=== PATIENT | female | born 1985 | race Caucasian/White ===

== ENCOUNTER 2018-01-10 05:07 | Emergency (ER) | payer SELFPAY ==
[2018-01-10 05:20] VITALS: BP 114/67
[2018-01-10] MEDS: PROPARACAINE 0.5% OPHTH DROPS 15 ML EACHEYE STA (05:21)
--- NOTE | 2018-01-10 05:37 | ED Physician Documentation ---
PD HPI OPHTHO - Stated complaint Stated Complaint: RT EYE PAIN - Chief complaint Chief Complaint: Heent - History obtained from History obtained from: Patient - History of Present Illness Timing - duration: Days (2) Timing - details: Gradual onset Severity Comments: moderate Location: Right Quality / character: Burning, Sharp Associated symptoms: Redness, Tearing, Photophobia. No: Swelling, Discharge, Matting, FB sensation, Double vision, Decreased vision, Loss of vision, Headache Contributing factors: Wears contacts. No: Exposed to conjunctivitis, Recent URI , UV light (welding etc), Chemical exposure, acid, Chemical exposure, base, Blunt trauma, Penetrating trauma, Irrigated DEVIL DOG, Wears glasses, Work related Similar symptoms before: No: Diagnosis Recently seen: Not recently seen Review of Systems Constitutional: denies: Fever, Chills Eyes: reports: Photophobia, Discharge, Irritation. denies: Loss of vision, Decreased vision Ears: denies: Ear pain, Reviewed and negative Nose: denies: Foreign Body Throat: denies: Dental pain / toothache Respiratory: denies: Cough Skin: denies: Laceration (s) Neurologic: denies: Headache PD PAST MEDICAL HISTORY - Past Medical History Past Medical History: No - Past Surgical History Past Surgical History: No - Present Medications Home Medications: Ambulatory Orders Medication Instructions Recorded Confirmed Erythromycin Base [Erythromycin 1 gm RIGHTEYE BID 7 Days #1 01/10/18 Ophthalmic Ointment] oint...g. Multivitamin [Multivitamins] 1 cap PO DAILY 01/10/18 01/10/18 - Allergies Allergies/Adverse Reactions: Allergies Allergy/AdvReac Type Severity Reaction Status Date / Time amoxicillin Allergy Hives Verified 01/10/18 05:18 Penicillins Allergy Hives Verified 01/10/18 05:18 - Social History Does the pt smoke?: No Smoking Status: Never smoker Does the pt drink ETOH?: Yes Does the pt have substance abuse?: No - Immunizations Immunizations are current?: Yes - POLST Patient has POLST: No PD ED PE NORMAL - General General: Alert and oriented X 3, No acute distress, Well developed/nourished - HEENT HEENT: Atraumatic - Derm Derm: Normal color - Extremities Extremities: No deformity - Neuro Neuro: Alert and oriented X 3, Normal speech - Psych Psych: Normal mood PD ED PE EXPANDED - Eyes Eyes: PERRL, EOMI, Right eye, Normal eyelids, Injected conj/sclera, Normal corneas, Anterior chambers clear, Other (Right IOP 21 Left IOP 20). No: Eyelid injury, Eyelid swelling, Eyelid erythema, No eyelid FB (everted), Eyelid embedded FB, Exudate, Subconj hemorrhage, Scleral icterus, Corneal FB, Corneal abrasion, Corneal ulcer, Fluorescein uptake, Hyphema, Ant chamber cells/flare Results - Vitals Vitals: Vital Signs - 24 hr 01/10/18 05:10 Temperature 35.9 C L Heart Rate 76 Respiratory 18 Rate Blood Pressure 114/67 O2 Saturation 100 Oxygen O2 Source Room air PD MEDICAL DECISION MAKING - ED course ED course: The patient will be treated for conjunctivitis as an outpatient. I advised follow-up with ophthalmology for recheck. I discussed warning signs and recommended returning to the emergency department immediately for worsening or any concerns. - Sepsis Event Vital Signs: Vital Signs - 24 hr 01/10/18 05:10 Temperature 35.9 C L Heart Rate 76 Respiratory 18 Rate Blood Pressure 114/67 O2 Saturation 100 Oxygen O2 Source Room air Departure - Departure Disposition: 01 Home, Self Care Clinical Impression: Conjunctivitis Qualifiers: Conjunctivitis type: acute Acute conjunctivitis type: unspecified Laterality: unspecified laterality Qualified Code(s): H10.30 - Unspecified acute conjunctivitis, unspecified eye Condition: Good Instructions: ED Conjunctivitis Nonspecific Prescriptions: Erythromycin Base [Erythromycin Ophthalmic Ointment] 1 gm RIGHTEYE BID 7 Days # 1 oint...g. Comments: These follow-up with your media relations intern for recheck. Please return to the emergency department immediately for worsening or any concerns
[2018-01-10] MEDS: ERYTHROMYCIN OPHTH OINT 1 GM TUBE RIGHTEYE STA (05:44)
== END 2018-01-10 05:45 | disposition home or self-care (01) ==
LOC: ED 05:07
DX: H10.30 Unspecified acute conjunctivitis, unspecified eye (principal)
CPT/HCPCS: 99283; J3490